=== PATIENT | female | born 1990 | race American Indian/Alaskan Native ===

== ENCOUNTER 2016-12-18 10:52 | Emergency (ER) | payer MEDICAID ==
[2016-12-18] MEDS ORDERED: MOTRIN PO ONE (11:23)
--- NOTE | 2016-12-18 11:23 | Emergency Department Report ---
HPI - General Chief Complaint: Upper Respiratory Infection Time Seen by Provider: 12/18/16 11:17 - HPI HPI: This is a 26-year-old female reports that she's been having in cough that is nonproductive, sinus issues for the last 1 week. She says she has a history of asthma and she would like to have a refill on her palm. Denies any shortness of breath or chest pain. Denies any fever or chills. Denies any nausea or vomiting. Denies any sore throat or difficulty swallowing. He states he takes albuterol for asthma. She is also say that she has a hard bump between her breasts for 4 days that's painful . Pain is 7 out of 10 and achy. Worse with touch better without touching. She says she took Tylenol and ibuprofen but it didn't work. Patient said she does not get frequent asthma attack but she's been in the emergency room within the last year for asthma exacerbation. She says she coughs more with her asthma that she wheezes. She says she doesn't feel like she is having an asthma tap but usually when she gets a cold it turns into a asthma attack. [facility] Past Medical Hx - Past Medical History Previous Medical History?: Yes Hx Asthma: Yes - Surgical History Past Surgical History?: No - Family History Family history: no significant - Social History Smoking Status: Current Some Day Smoker Substance Use Type: None - Medications Home Medications: Home Medications Medication Instructions Recorded Confirmed Last Taken Type ALBUTEROL Inhaler [ProAir HFA 2 puff IH QID PRN #1 inhalation 12/18/16 Unknown Rx Inhaler] Amoxicillin/K Clav Tab [Augmentin 1 tab PO Q12HR #20 tab 12/18/16 Unknown Rx 875 mg] Cetirizine HCl [ZyrTEC] 10 mg PO QAM #14 capsule 12/18/16 Unknown Rx Mometasone Furoate [Nasonex] 2 spray NS QDAY #1 bottle 12/18/16 Unknown Rx guaiFENesin/CODEINE [Robitussin AC] 5 ml PO Q12H PRN #70 oral.liqd 12/18/16 Unknown Rx ED Review of Systems ROS: Stated complaint: COUGH Other details as noted in HPI Comment: All other systems reviewed and negative Constitutional: no symptoms reported ENT: congestion (congestion and runny nose). denies: ear pain, throat pain, dental pain, hearing loss Respiratory: cough, wheezing. denies: orthopnea, shortness of breath, SOB with exertion, SOB at rest, stridor Cardiovascular: denies: chest pain, palpitations, edema, syncope Gastrointestinal: denies: abdominal pain, nausea, vomiting, diarrhea Musculoskeletal: denies: back pain, joint swelling, arthralgia, myalgia Skin: denies: rash Neurological: denies: headache, weakness, numbness, paresthesias, confusion, abnormal gait, vertigo Physical Exam - Physical Exam Vital Signs: Vital Signs 12/18/16 10:56 Temperature 99.2 F Pulse Rate 105 H Respiratory 18 Rate Blood Pressure 121/75 O2 Sat by Pulse 100 Oximetry Vital Signs 12/18/16 12/18/16 12/18/16 10:56 11:24 11:43 Temperature 99.2 F Pulse Rate 105 H 100 H Pulse Rate [ 106 H Anterior Bilateral Throughout] Respiratory 18 Rate Respiratory 18 Rate [Anterior Bilateral Throughout] Blood Pressure 121/75 O2 Sat by Pulse 100 Oximetry 12/18/16 11:45 Temperature Pulse Rate Pulse Rate [ 100 H Anterior Bilateral Throughout] Respiratory Rate Respiratory 18 Rate [Anterior Bilateral Throughout] Blood Pressure O2 Sat by Pulse Oximetry General: The 26-year-old female well-nourished well-developed in no acute distress Physical Exam: Head: Normocephalic atraumatic Ears: BIateral TM congested without erythema. Rah EAC without redness or swelling .NO DRAINAGE. No mastoid bone tenderness. Mouth: Moist, no pharyngeal erythema or exudates . . No tonsillar erythema or exudate. UVULA midline and oral airways patent. Tongue is normal Neck: Nontender to palpate, supple, normal range of motion. No adenopathy. No c- spine tenderness. Breast EXAM: Rah Breast exam breast is symmetrical and sitting position. No bulging noted. Skin has no dimpling or retraction, no edema, ulceration or erythema. No eczema tests area on breasts. Nipples are symmetric without retraction. No nipple discharge or crusting. Palpated quarter size nodule to the left inner lateral breasts that is tender to palpate without any erythema. No adenopathy to regional lymph nodes to include Stefany Sam, supraclavicular, infraclavicular and axillary area. Nose: Bilateral nasal mucosa congested with erythema and clear drainage. Maxillary and frontal sinuses nontender to palpate. Eyes: Sclerae and conjunctiva without injection. Bilateral pupils equal and reactive to light. Bilateral lids are normal. Normal accommodation.BEOMI Lungs: Clear to auscultate bilaterally, no rhonchi wheezes or rales. Normal work of breathing and no chest wall tenderness. Positive dry cough CV: S1, S2. Tachycardic at 105 in triage note but apical heart rate manually is 108/m and regular rhythm ,negative murmur. Capillary refill is less than 3 seconds Skin: Clean dry and intact, no rashes or lesions PSYCH: Normal mood and behavior s ED Course Vital Signs 12/18/16 10:56 Temperature 99.2 F Pulse Rate 105 H Respiratory 18 Rate Blood Pressure 121/75 O2 Sat by Pulse 100 Oximetry Vital Signs 12/18/16 12/18/16 12/18/16 10:56 11:24 11:43 Temperature 99.2 F Pulse Rate 105 H 100 H Pulse Rate [ 106 H Anterior Bilateral Throughout] Respiratory 18 Rate Respiratory 18 Rate [Anterior Bilateral Throughout] Blood Pressure 121/75 O2 Sat by Pulse 100 Oximetry 12/18/16 11:45 Temperature Pulse Rate Pulse Rate [ 100 H Anterior Bilateral Throughout] Respiratory Rate Respiratory 18 Rate [Anterior Bilateral Throughout] Blood Pressure O2 Sat by Pulse Oximetry - Reevaluation(s) Reevaluation #1: 12/18/16 12:21 Patient given Motrin 800 mg emergency room, Deltasone 60 mg by mouth and DuoNeb treatment 1. ED Medical Decision Making - Medical Decision Making ED course: Patient here reports that she has cough this been going on for a week. She reports her cough is nonproductive and she's also been having sinus issues. She says she is out of her albuterol pump and she has asthma and although she doesn't use a lot she is afraid that K she is having cold that is gone exacerbated her asthma. Patient reports that she has a lump between her breasts that is painful that started 4 days ago. Bilateral Breast exam with sitting position and supine position revealed quarter size lump to left inner lateral breast. Tender to palpate without any erythema. Bilateral areola normal and no nipple discharge. No nipple inversion noted. Discussed with patient that she needs to call her primary care doctor on Tuesday and schedule an appointment to be seen. I discussed with her that she will need to have her primary care referred for outpatient screening mammogram. Patient voiced understanding of discharge instructions and treatment plan and discharged home a prescription for Augmentin, Zyrtec, guaifenesin with codeine and Nasonex Critical care attestation.: If time is entered above; I have spent that time in minutes in the direct care of this critically ill patient, excluding procedure time. ED Disposition Clinical Impression: Cough in adult, Encounter for medication refill, Breast lump in female Sinusitis, acute Qualifiers: Sinusitis location: unspecified location Recurrence: not specified as recurrent Qualified Code(s): J01.90 - Acute sinusitis, unspecified Disposition: - TO HOME OR SELFCARE Is pt being admited?: No Does the pt Need Aspirin: No Condition: Stable Instructions: Breast Self-exam (ED), Sinusitis (ED), Breast Mass (ED), Acute Cough (ED) Additional Instructions: Please increase her fluid intake Flush nostrils with saline nasal spray take antibiotic as prescribed F/U with primary care physician as instructed for follow up sinusitis and referral Out patient mammogram Do not drive or operate heavy machinery while taken cough medicine as it has codeine which which causes drowsiness Prescriptions: ALBUTEROL Inhaler [ProAir HFA Inhaler] 2 puff IH QID PRN #1 inhalation PRN Reason: COUGH/WHEEZING Amoxicillin/K Clav Tab [Augmentin 875 mg] 1 tab PO Q12HR #20 tab Cetirizine HCl [ZyrTEC] 10 mg PO QAM #14 capsule guaiFENesin/CODEINE [Robitussin AC] 5 ml PO Q12H PRN #70 oral.liqd PRN Reason: Cough Mometasone Furoate [Nasonex] 2 spray NS QDAY #1 bottle Referrals: PRIMARY CARE,MD [Primary Care Provider] - 3-5 Days Forms: Accompanied Note, Work/School Release Form(ED)
[2016-12-18] MEDS ORDERED: DELTASONE PO ONE (11:27)
[2016-12-18] MEDS ORDERED: DUONEB *Not for PRN Use IH ONE (11:28)
[2016-12-18 12:52] VITALS: BP 109/66
== END 2016-12-18 12:52 | disposition home or self-care (01) ==
LOC: ED 10:52
DX: J01.90 Acute sinusitis, unspecified (principal); R05 Cough; N63.22 Unspecified lump in the left breast, upper inner quadrant; J45.909 Unspecified asthma, uncomplicated; F17.200 Nicotine dependence, unspecified, uncomplicated
CPT/HCPCS: 94640; 99283; J7512